=== PATIENT | male | born 1965 | race African-American/Black ===

== ENCOUNTER 2017-09-28 22:18 | Emergency (ER) | payer OTHER, SELFPAY ==
[~2017-09-28] VITALS: Ht 182.9 cm; Wt 73.4 kg
[2017-09-28 22:19] VITALS: BP 109/68
== END 2017-09-28 23:53 | disposition home or self-care (01) ==
LOC: ED 23:47
DX: K40.91 Unilateral inguinal hernia, without obstruction or gangrene, recurrent (principal); F17.210 Nicotine dependence, cigarettes, uncomplicated
CPT/HCPCS: 76857; 80053; 83690; 85025; 99284; 99285

== ENCOUNTER 2017-11-27 02:36 | Emergency (ER) | payer MEDICAID ==
[~2017-11-27] VITALS: Ht 182.9 cm; Wt 73.8 kg
[2017-11-27 02:38] VITALS: BP 138/100
[2017-11-27] MEDS ORDERED: FAMOTIDINE 20 MG TABLET ONE (02:59)
[2017-11-27] MEDS ORDERED: DIPHENHYDRAMINE 25 MG CAPSULE ONE (02:59)
[2017-11-27] MEDS ORDERED: FAMOTIDINE 20 MG TABLET PO ONE (03:00)
[2017-11-27] MEDS ORDERED: DIPHENHYDRAMINE 25 MG CAPSULE PO ONE (03:00)
== END 2017-11-27 03:57 | disposition home or self-care (01) ==
LOC: ED 02:48
DX: H02.843 Edema of right eye, unspecified eyelid (principal); H57.8 Other specified disorders of eye and adnexa; R21 Rash and other nonspecific skin eruption
CPT/HCPCS: 99284; J7512; Q0163